=== PATIENT | female | born 1990 | race Caucasian/White ===

== ENCOUNTER 2016-10-28 21:27 | Emergency (ER) | payer OTHER, MEDICAID ==
[2016-10-28 21:34] VITALS: BMI 35.6
[2016-10-28 21:38] VITALS: BP 131/82; PULSE 86; RESP 18; TEMP 97.8; O2SAT 97
--- NOTE | 2016-10-28 22:19 | ED PDOC ---
Arrival/HPI <Larry Ernst - Last Filed: 10/28/16 22:21> - General Historian: Patient - History of Present Illness Time/Duration: < month (2 weeks) Symptom Onset: Gradual Symptom Course: Unchanged Activities at Onset: Rest, Light Context: Home <Oneyda Amador - Last Filed: 10/28/16 23:19> - General Chief Complaint: Cough, Cold, Congestion Time Seen by Provider: 10/28/16 22:10 - History of Present Illness Narrative History of Present Illness (Text): 10/28/16 22:17 Dafne Madison is a 25 year old female smoker, whose past medical history includes asthma, who presents to the Emergency department complaining of a cough. Patient states she has been experiencing a productive cough for the past 2 weeks now with greenish phlegm. Patient reports associated sore throat and runny nose. Patient states she used her inhaler today with some relief. pt states her daughter has similar symptoms. Patient denies any fever, chills, chest pain, shortness of breath, nausea, vomiting, diarrhea, urinary symptoms, back pain, neck pain, headache, dizziness, or any other complaints. (Oneyda Amador) Past Medical History - Provider Review Nursing Documentation Reviewed: Yes - Travel History Have you recently traveled outside [place] w/in the past 3 mons?: No - Infectious Disease Hx of Infectious Diseases: None - Psychiatric Hx Psychophysiologic Disorder: No Hx Substance Use: Yes (marijuana) - Surgical History Hx Section: Yes (x1) Hx Dilation and Curettage: Yes (x5) Other/Comment: x 5 - Anesthesia Hx Anesthesia: Yes Hx Anesthesia Reactions: No Hx Malignant Hyperthermia: No <Oneyda Amador - Last Filed: 10/28/16 23:19> Family/Social History - Physician Review Nursing Documentation Reviewed: Yes Family/Social History: No Known Family HX Smoking Status: Light Smoker < 10 Cigarettes Daily Hx Alcohol Use: No Hx Substance Use: Yes (marijuana) <Oneyda Amador - Last Filed: 10/28/16 23:19> Allergies/Home Meds <Larry Ernst - Last Filed: 10/28/16 22:21> <Oneyda Amador - Last Filed: 10/28/16 23:19> Allergies/Adverse Reactions: Allergies No Known Allergies Allergy (Verified 11/20/15 20:15) Review of Systems - Physician Review All systems were reviewed & negative as marked: Yes - Review of Systems Constitutional: Normal. absent: Fevers Eyes: Normal ENT: Sore Throat, Rhinorrhea, Sinus Congestion Respiratory: Cough, Sputum. absent: SOB, Wheezing Cardiovascular: Normal. absent: Chest Pain, Palpitations Gastrointestinal: Normal. absent: Abdominal Pain, Diarrhea, Nausea, Vomiting Genitourinary Female: Normal. absent: Dysuria, Frequency, Hematuria, Urine Output Changes Musculoskeletal: Normal. absent: Back Pain, Neck Pain Skin: Normal. absent: Rash Neurological: Normal. absent: Headache, Dizziness Endocrine: Normal Hemo/Lymphatic: Normal Psychiatric: Normal <Oneyda Amador T - Last Filed: 10/28/16 23:19> Physical Exam Vital Signs Reviewed: Yes Temperature: Afebrile Blood Pressure: Normal Pulse: Regular Respiratory Rate: Normal Appearance: Positive for: Well-Appearing, Non-Toxic, Comfortable Pain Distress: None Mental Status: Positive for: Alert and Oriented X 3 - Systems Exam Head: Present: Atraumatic, Normocephalic Conjunctiva: Present: Normal Mouth: Present: Moist Mucous Membranes. No: Drooling, Trismus Pharnyx: Present: Normal. No: ERYTHEMA, EXUDATE, Peritonsilar Swelling, Uvular Deviation, Muffled/Hoarse Voice, Strider, Soft Palate/Uvular Edema Nose (External): Present: Atraumatic Nose (Internal): Present: Clear Mucous, Rhinorrhea (Nasal congestion) Neck: Present: Normal Range of Motion Respiratory/Chest: Present: Clear to Auscultation, Good Air Exchange. No: Respiratory Distress, Accessory Muscle Use, Wheezes, Decreased Breath Sounds, Retracting, Rhonchi, Tachypneic, Tender to Palpation Cardiovascular: Present: Regular Rate and Rhythm, Normal S1, S2. No: Murmurs Back: Present: Normal Inspection Upper Extremity: Present: Normal ROM Lower Extremity: Present: Normal ROM Neurological: Present: GCS=15 Skin: Present: Warm, Dry, Normal Color. No: Rashes Psychiatric: Present: Alert, Oriented x 3 <Oneyda Amador T - Last Filed: 10/28/16 23:19> Vital Signs Temp Pulse Resp BP Pulse Ox 10/28/16 21:37 97.8 F 86 18 131/82 97 Medical Decision Making <Larry Ernst - Last Filed: 10/28/16 22:21> <Oneyda Amador - Last Filed: 10/28/16 23:19> ED Course and Treatment: 10/28/16 22:17 Impression: 25 year old female complaining of productive cough, sore throat, and runny nose for 2 weeks. Plan: -- Zithromax -- Reassess and disposition Progress Notes: Patient is nontoxic well-appearing in no distress. Vital signs are stable. I advised follow up with primary care physician within the next 2 days. I advised increase fluids and return if symptoms worsen persist or if new symptoms develop. Patient verbalizes understanding of discharge instructions and need for immediate followup. all aspects of this case were discussed the attending of record. IMPRESSION; cough Motrin one tablet every 6 hours as needed for pain Zithromax one tablet once daily x4 days FLonase; 2 sprays each nostril once daily. Increase fluids Followup with primary care physician the next 2 days Return if symptoms worsen persist or if new symptoms develop (Oneyda Amador) - Medication Orders Current Medication Orders: Discontinued Medications Azithromycin (Zithromax) 500 mg PO STAT STA PRN Reason: Protocol Stop: 10/28/16 22:42 - PA / GENETIC PHYSICIAN / Resident Statement WAN has reviewed & agrees with the documentation as recorded. WAN has examined the patient and agrees with the treatment plan. <Larry Ernst - Last Filed: 10/28/16 22:21> - Scribe Statement The provider has reviewed the documentation as recorded by the Scribe <Oneyda Amador - Last Filed: 10/28/16 23:19> - Scribe Statement Anabela Castle All medical record entries made by the Scribe were at my direction and personally dictated by me. I have reviewed the chart and agree that the record accurately reflects my personal performance of the history, physical exam, medical decision making, and the department course for this patient. I have also personally directed, reviewed, and agree with the discharge instructions and disposition. (Oneyda Amador) Disposition/Present on Arrival <Larry Ernst - Last Filed: 10/28/16 22:21> - Present on Arrival Any Indicators Present on Arrival: No History of DVT/PE: No History of Uncontrolled Diabetes: No Urinary Catheter: No History of Decub. Ulcer: No History Surgical Site Infection Following: None - Disposition Have Diagnosis and Disposition been Completed?: Yes Disposition Time: 22:57 Patient Plan: Discharge <PeteanthonyOneyda - Last Filed: 10/28/16 23:19> - Disposition Diagnosis: Cough, Nasal congestion Disposition: HOME/ ROUTINE Condition: GOOD Discharge Instructions (ExitCare): Acute Cough (ED) Additional Instructions: Motrin one tablet every 6 hours as needed for pain Zithromax one tablet once daily x4 days FLonase; 2 sprays each nostril once daily. Increase fluids Followup with primary care physician the next 2 days Return if symptoms worsen persist or if new symptoms develop Prescriptions: Fluticasone Nasal [Flonase] 2 spr NS DAILY #1 spr Ibuprofen [Motrin] 600 mg PO Q6H PRN #20 tab PRN Reason: pain/fever reduction Mask, Face [Nebulizer Aerosol Mask Adult] 1 dev XX PRN PRN #1 dev PRN Reason: asthma Azithromycin [Zithromax] 250 mg PO DAILY #4 tab Forms: WORK NOTE
== END 2016-10-28 23:43 | disposition home or self-care (01) ==
LOC: ED 21:27
DX: R05 Cough (principal); R09.81 Nasal congestion

== ENCOUNTER 2017-01-27 06:17 | Emergency (ER) | payer OTHER, MEDICAID ==
[2017-01-27 06:23] VITALS: BMI 34.0
[2017-01-27 06:29] VITALS: TEMP 98.3
--- NOTE | 2017-01-27 07:25 | ED PDOC ---
Arrival/HPI - General Chief Complaint: Abnormal Skin Integrity Time Seen by Provider: 01/27/17 07:15 Historian: Patient - History of Present Illness Narrative History of Present Illness (Text): 01/27/17 07:25 A 26 year old female, who denies any past medical history, was brought into the emergency department by [facility] for evaluation of right 2nd digit abrasion. Patient reports last night she tripped and injured her finger. Patient denies any fever, chills, nausea, vomiting, diarrhea, abdominal pain, chest pain, shortness of breath or any other complaints. Patient reports her tetanus shot is up to date. PMD: Dr. Cook Time/Duration: Other (last night) Symptom Course: Unchanged Quality: Other Context: Other Past Medical History - Provider Review Nursing Documentation Reviewed: Yes - Infectious Disease Hx of Infectious Diseases: None - Pulmonary Hx Asthma: Yes - Psychiatric Hx Psychophysiologic Disorder: No Hx Substance Use: Yes (marijuana) - Surgical History Hx Section: Yes (x1) Hx Dilation and Curettage: Yes (x5) Other/Comment: x 5 - Anesthesia Hx Anesthesia: Yes Hx Anesthesia Reactions: No Hx Malignant Hyperthermia: No Family/Social History - Physician Review Nursing Documentation Reviewed: Yes Family/Social History: No Known Family HX Smoking Status: Light Smoker < 10 Cigarettes Daily Hx Alcohol Use: No Hx Substance Use: Yes (marijuana) Allergies/Home Meds Allergies/Adverse Reactions: Allergies No Known Allergies Allergy (Verified 01/27/17 06:23) Home Medications: Home Meds Medication Instructions Recorded Confirmed No Known Home Med 01/27/17 01/27/17 Review of Systems - Physician Review All systems were reviewed & negative as marked: Yes - Review of Systems Constitutional: absent: Fevers, Night Sweats Respiratory: absent: SOB Cardiovascular: absent: Chest Pain Gastrointestinal: absent: Abdominal Pain, Diarrhea, Nausea, Vomiting Skin: Other (Right 2nd digit abrasion) Physical Exam - Physical Exam Narrative Physical Exam (Text): Constitutional: No acute distress. Head: Normocephalic. Atraumatic. Eyes: PERRL. ENT: Moist mucous membranes. Neck: Supple. Cardiovascular: Regular rate. Chest: No tenderness. Respiratory: Clear to auscultation bilaterally. GI: Soft. Nontender. Nondistended. Back: No CVA tenderness. Musculoskeletal: No tenderness or swelling of extremities. Skin: No rash. Right 2nd digit superficial abrasion on distal phalanx, 2nd abrasion in middle phalanx. Full ROM. No tenderness. Neurologic: Alert, no focal deficit. Vital Signs Reviewed: Yes Vital Signs Temp Pulse Resp BP Pulse Ox 01/27/17 07:52 89 17 128/77 97 01/27/17 06:28 98.3 F 95 H 16 124/73 96 Temperature: Afebrile Blood Pressure: Normal Pulse: Tachycardic Respiratory Rate: Normal Appearance: Positive for: Well-Appearing, Non-Toxic, Comfortable Pain Distress: None Mental Status: Positive for: Alert and Oriented X 3 Medical Decision Making ED Course and Treatment: 01/27/17 07:25 Impression: A 26 year old female with a right 2nd digit abrasion. 1 abrasion too superficial for suture. 2nd abrasion punctate, no alignable edges. Plan: -- Bacitracin, dressing, and finger splint. -- Reassess and disposition Progress Notes: 01/27/17 07:49 I have discussed plan with the patient, who expresses understanding. Patient is stable for discharge. Patient was instructed to follow up with physician or return if symptoms worsen or new concerning symptoms arise. Released in police custody. - Medication Orders Current Medication Orders: Discontinued Medications Bacitracin (Bacitracin) 1 ea TOP ONCE ONE Stop: 01/27/17 07:34 Last Admin: 01/27/17 07:38 Dose: 1 ea - Scribe Statement The provider has reviewed the documentation as recorded by the Michi Donnelly Provider Scribe Attestation: All medical record entries made by the Scribe were at my direction and personally dictated by me. I have reviewed the chart and agree that the record accurately reflects my personal performance of the history, physical exam, medical decision making, and the department course for this patient. I have also personally directed, reviewed, and agree with the discharge instructions and disposition. Disposition/Present on Arrival - Present on Arrival Any Indicators Present on Arrival: No History of DVT/PE: No History of Uncontrolled Diabetes: No Urinary Catheter: No History of Decub. Ulcer: No History Surgical Site Infection Following: None - Disposition Have Diagnosis and Disposition been Completed?: Yes Diagnosis: Finger abrasion Disposition: RELEASED IN POLICE CUSTODY Disposition Time: 07:49 Patient Plan: Discharge Condition: STABLE Discharge Instructions (ExitCare): Splint Care (ED), Abrasion (ED) Additional Instructions: Patient is medically clear for incarceration. Referrals: Gosia Cook MD [Primary Care Provider] - Follow up with primary
[2017-01-27] MEDS ORDERED: Bacitracin 500 Units/gm Oint Foilpak UD TOP ONE (07:33)
[2017-01-27 07:53] VITALS: BP 128/77; PULSE 89; RESP 17; O2SAT 97
== END 2017-01-27 08:08 ==
LOC: ED 06:17
DX: S60.410A Abrasion of right index finger, initial encounter (principal); W18.40XA Slipping, tripping and stumbling without falling, unspecified, initial encounter